=== PATIENT | male | born 1985 | race African-American/Black ===

== ENCOUNTER → 2016-12-17 | Outpatient (REF) | LOC: WSOH 11:09 | DX: Z02.89 Encounter for other administrative examinations (principal) ==

== ENCOUNTER 2017-10-28 06:50 | Emergency (ER) | payer SELFPAY ==
[~2017-10-28] VITALS: Ht 172.7 cm; Wt 96.8 kg
[2017-10-28 06:55] VITALS: TEMP 99.9
[2017-10-28 07:53] LABS: BASO % 0.3 % (0.0-2.0); EOS % 0.2 % (0-4.0); GRAN # 7.9 (1.4-6.5); GRAN % 79.4 % (42.2-75.2); HEMATOCRIT 43.4 % (42.0-52.0); HEMOGLOBIN 14.7 g/dl (13.5-18.0); LYMPH # 0.6 (1.2-3.4); LYMPH % 5.6 % (20.0-51.0); MEAN CELL VOLUME 80 fl (80.0-100.0); MEAN CORPUSCULAR HEMOGLOBIN 27 pg (27.0-31.0); MEAN CORPUSCULAR HGB CONC 34 g/dl (33.0-37.0); MEAN PLATELET VOLUME 12.7 fl (7.4-10.4); MONO # 1.4 (0.1-0.6); MONO % 14.1 % (1.7-9.3); PLATELET COUNT 131 K/mm3 (130-400); RED BLOOD COUNT 5.43 M/mm3 (4.20-5.60); REDCELL DISTRIBUTION WIDTH-CV 14.3 % (11.5-14.5)
[2017-10-28 08:04] LABS: ALBUMIN 4.4 gm/dL (3.5-5.0); BILIRUBIN,TOTAL 0.4 mg/dL (0.0-1.0); CALCIUM 9.6 mg/dL (8.4-10.2); CREATININE, serum 1.02 mg/dL (0.66-1.25); POTASSIUM 3.6 mmol/L (3.4-5.0); TOTAL PROTEIN 7.9 gm/dL (6.4-8.2)
[2017-10-28 08:31] LABS: COLLECTION METHOD CLEAN CATCH
[2017-10-28 08:49] LABS: MUCOUS Present /lpf; PH 5 (5-8); SQUAMOUS EPITHELIAL 0-2 /hpf; URINE APPEARANCE Clear; URINE BACTERIA None Seen /hpf; URINE BILIRUBIN Negative (NEGATIVE); URINE BLOOD Negative (NEGATIVE); URINE COLOR Yellow; URINE GLUCOSE Negative (NEGATIVE); URINE KETONE Trace (NEGATIVE); URINE LEUKOCYTE ESTERASE Negative (NEGATIVE); URINE NITRATE Negative (NEGATIVE); URINE PROTEIN(semi-quant) Negative (NEGATIVE); URINE RBC None Seen /hpf; URINE UROBILINOGEN Negative (NEGATIVE)
[2017-10-28 09:05] VITALS: BP 128/72; PULSE 96
== END 2017-10-28 09:07 | disposition home or self-care (01) ==
LOC: COL.ER 06:50
PROVIDERS: Physician Assistant
DX: R51 Headache (principal); F17.210 Nicotine dependence, cigarettes, uncomplicated
CPT/HCPCS: J1200; J1885; J2405; J7030